=== PATIENT | female | born 1950 | race African-American/Black ===

== ENCOUNTER 2016-11-03 16:21 | Emergency (ER) | payer MEDICARE, BC ==
[~2016-11-03] VITALS: Ht 160 cm; Wt 101.0 kg
[~2016-11-03 16:21] MED LIST: DIATR MEGLU/DIATRIZOATE SOLN 120ML ONE; EYE15DRO BOTHEYE; IOHEXOL-300 100 ML BOTTLE ONE; LEVO50TA8 PO; NIFE30TA94 PO; SODIUM CHLORIDE 0.9% 10ML VIAL ONE
[2016-11-03] MEDS ORDERED: OMEGA OIL (16:32)
[2016-11-03] MEDS ORDERED: [UNRECOGNIZED DRUG - OTHER] (16:32)
[2016-11-03] MEDS ORDERED: CYAN100081 PO (16:32)
[2016-11-03] MEDS ORDERED: CHOL100053 PO (16:32)
[2016-11-03] MEDS ORDERED: NIFE30TA94 PO (16:32)
[2016-11-03 18:45] LABS: BASOPHILS % 0.5 % (0.0-2.0); EOSINOPHILS % 0.4 % (0.0-5.0); HEMATOCRIT. 40.1 % (36.0-48.0); HEMOGLOBIN. 13.2 g/dL (12.0-16.0); LYMPHOCYTES % 32.7 % (20.0-50.0); MEAN CORPUSCULAR HEMOGLOBIN 28.5 pg (28.0-32.0); MEAN CORPUSCULAR VOLUME 86.8 fL (81.0-99.0); MEAN PLATELET VOLUME 9.5 fl (7.4-10.4); MONOCYTES % 5.3 % (2.0-8.0); NEUTROPHILS % 61.1 % (40.0-76.0); PLATELET 208 x1000/uL (130-400); RED BLOOD CELL COUNT 4.61 mill/uL (4.2-5.4); RED CELL DISTRIBUTION WIDTH 14.3 % (11.6-14.6)
[2016-11-03 18:51] LABS: INR 1.1
[2016-11-03 18:59] LABS: CARBON DIOXIDE 28 mEq/L (21-32); CHLORIDE 106 mEq/L (98-107)
[2016-11-03 19:35] LABS: CLARITY URINE CLEAR (CLEAR); COLOR URINE YELLOW (YELLOW); GLUCOSE URINE NEGATIVE (NEGATIVE); KETONES URINE NEGATIVE (NEGATIVE); LEUKOCYTE ESTERASE URINE NEGATIVE (NEGATIVE); NITRITE URINE NEGATIVE (NEGATIVE); OCCULT BLOOD URINE NEGATIVE (NEGATIVE); PH URINE 6.5 (4.5-8.0); PROTEIN URINE NEGATIVE (NEGATIVE); SPECIFIC GRAVITY URINE 1.007 (1.005-1.030)
[2016-11-03 22:10] VITALS: BP 142/75
== END 2016-11-03 22:13 | disposition home or self-care (01) ==
LOC: ER 16:31
DX: K59.00 Constipation, unspecified (principal); R10.9 Unspecified abdominal pain; I10 Essential (primary) hypertension; E03.9 Hypothyroidism, unspecified; Z88.8 Allergy status to other drugs, medicaments and biological substances; Z98.890 Other specified postprocedural states
CPT/HCPCS: 36415; 74177; 80053; 81003; 83690; 85025; 85610; 99285; A4216; Q9967; Q9963